=== PATIENT | female | born 1985 | race African-American/Black ===

== ENCOUNTER 2022-04-15 06:30 | Emergency (ER) | payer MEDICAID ==
[~2022-04-15] VITALS: Ht 162.6 cm; Wt 57.0 kg
[2022-04-15 07:03] VITALS: BP 107/47
== END 2022-04-15 09:04 | disposition home or self-care (01) ==
LOC: ER 06:30
DX: M79.672 Pain in left foot (principal)
CPT/HCPCS: 73630